=== PATIENT | female | born 1995 | race Caucasian/White ===

== ENCOUNTER 2017-11-14 12:40 | Emergency (ER) | payer OTHER ==
[2017-11-14] MEDS: ONDANSETRON (ODT) 4 MG TAB ODT (16:02)
== END 2017-11-14 17:22 | disposition home or self-care (01) ==
LOC: FTE 12:40
DX: R11.2 Nausea with vomiting, unspecified (principal); R50.9 Fever, unspecified; R10.84 Generalized abdominal pain; R19.7 Diarrhea, unspecified; R51 Headache
CPT/HCPCS: 93005; 99283-25